=== PATIENT | male | born 1960 | race Caucasian/White ===

== ENCOUNTER 2019-01-10 20:38 | Inpatient (IN) | payer OTHER ==
[~2019-01-10] VITALS: Ht 188 cm; Wt 117.9 kg
[2019-01-10 20:50] LABS: URINE BILIRUBIN NEGATIVE (Negative); URINE BLOOD NEGATIVE (Negative); URINE CLARITY CLEAR; URINE COLOR YELLOW; URINE GLUCOSE-RANDOM* NEGATIVE (Negative); URINE KETONES NEGATIVE (Negative); URINE LEUKOCYTES-REFLEX NEGATIVE (Negative); URINE NITRITE-REFLEX NEGATIVE (Negative); URINE PROTEIN (DIPSTICK) NEGATIVE (Negative); URINE UROBILINOGEN 0.2 E.U./dl (0.2-1.0)
[2019-01-10 21:22] VITALS: BP 167/89
[2019-01-10 23:22] LABS: ABSOLUTE NEUTROPHILS 9.6 thou/uL (1.4-8.2); BASOPHILS 0.5 % (0.0-2.0); EOSINOPHILS 2.6 % (0.0-3.0); HEMATOCRIT 45.3 % (42.0-52.0); LYMPHOCYTES 8.3 % (24.0-44.0); MCH 31.5 pg (26.0-34.0); MCHC 35.3 g/dL (28.0-37.0); MCV 89.1 fL (80.0-100.0); MONOCYTES 8.7 % (1.0-8.0); PLATELET COUNT 192 thou/uL (150-400); POLYS 79.9 % (36.0-66.0); RBC 5.08 mil/uL (4.50-6.00); RDW 14.4 % (10.5-14.5)
[2019-01-10 23:32] LABS: CALCIUM 8.6 mg/dL (8.5-10.1); POTASSIUM 3.7 mmol/L (3.5-5.1)
[2019-01-10 23:38] LABS: ALBUMIN 3.5 g/dL (3.4-5.0); TOTAL BILIRUBIN 1.2 mg/dL (<0.1-1.0)
[2019-01-11 09:35] VITALS: BP 113/86
[2019-01-11 18:33] VITALS: BP 164/88
--- NOTE | 2019-01-11 18:35 | NUR ---
ARRIVES TO FLOOR VIA CART FROM SURGERY 58 YEAR OLD MALE FOLLOWING LAP CHOLEY-END TIME ANESTHESIA 1548. 2 IV SITES 1 LEFT HAND-1 IN RIGHT AC-LR 125CC/HR STARTED IN LEFT HAND SITE. AVE DRAIN PATENT DRAINING BRIGHT RED BLOOD 4 SMALL INCISIONS CLOSED WITH DERMABOND. VS STABLE UPON ARIVAL TO FLOOR-UP TO BR X2 AND GAIT IS STEADY REQUIRES SBA X 1-ATE 100 PERCENT OF SUPPER-NO NAUSEA NOTED OR REPORTED-DENIES PAIN/DISCOMFORT
[2019-01-11 19:06] VITALS: BP 142/80
--- NOTE | 2019-01-11 19:11 | NUR ---
BP RECHECKED VIA MANUAL CUFF AND IS 140/82 P-80.
[2019-01-11 20:35] VITALS: BP 151/73
[2019-01-12 00:13] VITALS: BP 143/57
[2019-01-12 03:35] VITALS: BP 140/80
--- NOTE | 2019-01-12 06:23 | NUR ---
ASSUMED CARE AT 1900, ASSESMENT COMPLETED. PT REPORTS MODERATE TENDERNESS TO RIGHT SIDE OF ABD; WAS RELIEVED BY OXY GIVEN DURING THE DAY; OVERNIGHT PT REPORTED HE WANTED TO MINIMIZE THE AMOUNT OF NARCOTICS; GAVE SCHEDULED TYLENOL ORDERED. DENIED NAUSEA OR SOB. 3x LAP SITES C/D/I WITH DERMABOND; MODERATE AMOUNT OF SANGINOUS DRAINAGE AROUND AVE DRAIN SITE, DID NOT LEAK OUTSIDE OF THE BANDAGE. ABOUT 60 ML TOTAL OUT OF THE AVE DRAIN OVERNIGHT. EDUCATED PT ABOUT PAIN CONTROL, STARTING A BOWEL REGIMEN IF TAKING NARCOTICS WELL INCREASING WATER INTAKE/WALKING MORE TO RESTART BOWEL, AND POST-OP EXPECTATIONS. PT UP THIS AM, WALKED MULTIPLE LAPS OF THE UNIT. NO OTHER CONCERNS, WILL CONTINUE TO MONITOR.
[2019-01-12 07:23] VITALS: BP 143/95
--- NOTE | 2019-01-12 11:12 | NUR ---
Assumed care of pt at 0700. Pt alert and oriented x4. Pain controlled. Denies pain meds. Up ad shon. AVE drain in place. Serosanguineous drainage. Lap sites clean, intact, and well-approximated. Awaiting on discharge orders.
[2019-01-12] MEDS ORDERED: ACETAMINOPHEN325 M1 PO (11:44)
[2019-01-12] MEDS ORDERED: OXYCODONE HCL 55 MG PO (11:44)
[2019-01-12] MEDS ORDERED: COLACE100 MG PO (11:45)
[2019-01-12] MEDS ORDERED: MIRALAX17 GM PO (11:45)
[2019-01-12 11:57] VITALS: BP 143/95
--- NOTE | 2019-01-12 12:02 | NUR ---
FAXED FACE SHEET TO [employer] FOR HELP WITH MEDICAID APPLICATION. DCP TO FOLLOW.
--- NOTE | 2019-01-12 12:26 | NUR ---
ASSESSMENT-PT LIVES AT HOME WITH HIS SO. PT IS INDEPENDENT OF ADLS AND AMBULATION. 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 PT HAS NO PCP. PT GIVEN A PRESCRIPTION DRUG DISCOUNT CARD AND A SAFETY NET PACKET. NO OTHER DC NEEDS IDENTIFIED. 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
--- NOTE | 2019-01-15 14:04 | O ---
[facility] [place] [address] OPERATIVE REPORT Name: DEJA HU Janak Room #: 421-P [facility] IN M.R.#: [id number] Admission: 01/11/19 ������������������ Attend Phys: Nacho Pastor, Discharge: 01/12/19 ������������������ Date of : 56 Report #: [id number] THIS REPORT FOR: //name// CC: ROXANN physician/PCP Nacho Pastor DATE OF SERVICE: 01/11/2019 PREPROCEDURE DIAGNOSIS: Cholecystitis. POSTPROCEDURE DIAGNOSIS: Severe necrotic gangrenous cholecystitis. PROCEDURE PERFORMED: Laparoscopic cholecystectomy with attempted intraoperative cholangiogram. SURGEON: Abhilash Crouch M.D. ANESTHETIC: General. ASSISTANTS: None. ESTIMATED BLOOD LOSS: 100 mL. URINE OUTPUT: Not measured. COMPLICATIONS: None. FINDINGS: 1. The patient had severe gangrenous necrotic cholecystitis. 2. The patient otherwise had normal biliary anatomy. 3. No cholangiogram was completed. SPECIMENS: Gallbladder and contents. INDICATIONS FOR PROCEDURE: The patient is a very pleasant 58-year-old gentleman with a longstanding history of right upper quadrant abdominal pain that has worsened recently. He has also developed nausea and vomiting, presented to the ER where a CT scan and ultrasound demonstrated cholecystitis. General Surgery was asked to evaluate the patient. The risks, benefits and alternatives of the procedure were discussed with the patient. The risks discussed included, but were not limited to the risk of bleeding, infection, damage to any intra-abdominal organs (hollow viscus organs, solid organs, blood vessels, nerves), damage to the common bile duct necessitating further surgery, further hospitalization, could be a life altering event, conversion to open, need for prolonged hospitalization, postoperative [facility] [address] [place] [address] OPERATIVE REPORT Name: DEJA HU Room #: 421-P [facility] IN ..#: [id number] Admission: 01/11/19 ������������������ Attend Phys: Nacho Pastor, Discharge: 01/12/19 ������������������ Date of : 56 Report #: [id number] abscess, postoperative ileus, other postoperative complications, anesthesia (including cardiac, pulmonary, neurologic type complications) and . The patient had the opportunity to ask questions. All questions were answered to the best of my ability. At the end of the discussion, he and his acquaintance did wish to proceed with surgery. DESCRIPTION OF PROCEDURE: After informed consent was obtained, as above, the patient was taken to the operating room and placed in supine position. General anesthesia was induced. Preprocedure antibiotics were administered. His anterior abdomen was prepped and draped in the usual sterile fashion. A timeout was performed. After all were in agreement. A 5-mm incision was made in the supraumbilical region. Veress needle was inserted. The pneumoperitoneum was created. 5-mm port was passed. The laparoscope was then inserted. Abdomen was inspected. Findings as above. The patient had severe cholecystitis; however, there were no other gross abnormalities identified within the patient's abdomen. Next, the following ports were placed in standard fashion under direct visualization, 12-mm subxiphoid port and two 5 mm right upper quadrant ports. All ports were placed without any adverse events and after injection of local anesthetic. We began by draining the gallbladder using laparoscopic needle and suctioning the bile out the gallbladder. The dome of the gallbladder was then grasped and retracted towards the patient's right shoulder. Filmy adhesions and omentum that was stuck to the gallbladder were swept way down to the neck. There were strong adhesions to the neck of the gallbladder that were dissected away bluntly. Next, electrocautery was used to incise the region of the gallbladder overlying the node of Calot. This tissue was extremely thick and edematous and was very friable and not amenable to electrocautery. It basically tore with any manipulation and was hemorrhagic in nature. There was no large pulsatile bleeding. There is just friable tissue. Dissection continued trying to identify anatomy. We did use extreme caution using blunt dissection and using the suction device, we were able to identify the cystic duct. I gained circumferential control of the cystic duct. Cystic artery was then identified. The dissection then carried laterally and along the liver laterally to work on the cystic plate. I was able to gain a window behind the cystic artery between the gallbladder and cystic plate. There were then 2 and only 2 structures coming into and out of the gallbladder and there was also adequate cystic plate dissected free. At this point, I felt that I had my critical view. The cystic artery was clipped with 2 clips proximally and it was transected with electrocautery. Cystic duct was clipped with 2 clips distally. A ductotomy was performed. A cholangiogram catheter was attempted to be threaded; however, the cystic duct was extremely friable and it was non-amenable to cholangiogram; therefore, the cholangiogram was attempted once; however, this was unsuccessful, so was aborted. The cystic duct was clipped with 2 clips [facility] [address] [place] [address] OPERATIVE REPORT Name: DEJA HU Room #: 421-P [facility] IN M.R.#: [id number] Admission: 01/11/19 ������������������ Attend Phys: Nacho Pastor, Discharge: 01/12/19 ������������������ Date of : 56 Report #: [id number] proximally, was transected with scissors. The gallbladder was then dissected away from the hepatic plate using extreme caution. Once freed, it was placed into a laparoscopic retrieval bag and removed out the 12-mm port site under direct visualization. All free fluid in the right upper quadrant was suctioned out. Hemostasis was ensured along the liver bed. The clips were in place on the cystic duct and cystic artery. There was spillage of the gallbladder contents and the stones were carefully removed. The patient was hemostatic at this point. The 12-mm port site was removed. The fascia at this incision was closed using a laparoscopic fascial closure device. A 19-Cymro Noel drain was placed through the lateral right upper quadrant incision and placed carefully in the subhepatic space and secured into place using 2-0 nylon. The pneumoperitoneum was released. The trocars were removed. The skin incisions were closed using 4-0 Monocryl in subcuticular fashion. The patient tolerated the procedure well. There were no adverse events throughout the course of procedure. ��������������������������������������������� <ELECTRONICALLY SIGNED> ���������������������������������������� By: Abhilash Crouch MD ��������������������������������������������� 01/15/19 1404 2147 2212 Abhilash Crouch MD /marilynn
--- NOTE | 2019-01-15 14:04 | D ---
[facility] [place] [address] DISCHARGE SUMMARY Name: DEJA HU Room #: 421-P [facility] IN M.R.#: [id number] Admission: 01/11/19 ������������������ Attend Phys: Nacho Pastor, Discharge: 01/12/19 ������������������ Date of : 56 Report #: [id number] THIS REPORT FOR: //name// CC: ROXANN physician/PCP Nacho Pastor DATE OF SERVICE: 01/12/2019 ATTENDING PHYSICIAN: Abhilash Crouch MD CONSULTING PHYSICIANS: None. DISCHARGE DIAGNOSIS: Severe gangrenous necrotic cholecystitis. PROCEDURES PERFORMED: Laparoscopic cholecystectomy with attempted intraoperative cholangiogram. HOSPITAL COURSE: The patient was admitted and taken to the operating room for the above-stated procedure. The patient tolerated the procedure well. It was a very severe gangrenous gallbladder. Therefore, a drain was left. Postop day #1, the patient did great. He was eating. He was ambulating. His pain was controlled. He is afebrile. His vitals are stable. He is urinating. He is doing well and actually very anxious to get out of the hospital. DISCHARGE DISPOSITION: Home. CONDITION: Stable. MEDICATIONS: Please see discharge med rec. DIET: Regular. ACTIVITIES: Do not lift, twist, push or pull greater than 15 pounds x 4 weeks. Okay to shower, no soaking ____ water for [address] work while taking narcotics as these can make you drowsy. Measure and record drain output daily and bring recording to clinic. Followup Dr. Abhilash Crouch on Tuesday. ��������������������������������������������� <ELECTRONICALLY SIGNED> ���������������������������������������� By: Abhilash Crouch MD ��������������������������������������������� 01/15/19 1404 1158 1230 Abhilash Crouch MD /nt
--- NOTE | 2019-01-15 16:06 | PATH ---
[facility] [address] [place] [address] PATHOLOGY RPT PROCEDURE Name: AMADOU CAAL Room #: 421-P [facility] IN ..#: [id number] ������������������ Admission: 01/11/19 ������������������ Date of : 56 Discharge: 01/12/19 Report #: [id number] Path Case #: [id number] [facility] Accession Number: [id number] . 01 Material submitted: . gallbladder - GALLBLADDER . 01 Clinical history: . Cholecystitis . 02 Diagnosis: Gallbladder, cholecystectomy: - Gangrenous and hemorrhagic acute cholecystitis associated with extensive ulceration. - Negative for malignancy. - Cholelithiasis. (IUV/db; 01/15/2019) LBQ/01/15/2019 . 02 Electronically signed: . Vida Smith MD, Pathologist NPI- [id number] . 01 Gross description: . Received in formalin labeled "Caal, Amadou, gallbladder," is a ragged, disrupted gallbladder measuring 7.6 x 2.6 x 2.6 cm in greatest dimensions. The serosal surface is smooth to shaggy, extensively disrupted and pale hernandez to dusky pro-hernandez and hemorrhagic in appearance. A hernandez possible lymph node is noted near the infundibulum, measuring 0.8 x 0.7 x 0.3 cm. A ragged hole is present near the infundibulum, measuring 3.5 x 1.5 cm and extending to within 0.6 cm of the infundibulum. Two additional ragged holes are present at the fundus, measuring 1.4 x 0.3 cm and 2.1 x 0.2 cm. The mucosal surface is partially roughened and hernandez-brown to slightly hemorrhagic in appearance, displaying focal dark green patches toward the fundal aspect. The mucosa measures 0.1 cm in thickness, and the gallbladder wall measures up to 1.2 cm in thickness with extensively fatty cut surfaces. No distinct polyps or nodules are noted grossly. A single calculus is present within the specimen container that is black and granular in appearance, measuring 1.2 cm in maximum dimension. Hyperbaric Technologist sections of the infundibulum, body and fundus are submitted in cassettes A1 and A2, to include the aforementioned defects. The possible lymph node is trisected and submitted entirely in cassette A2. ([facility]; 01/12/2019) XDC/XDC . 02 Pathologist provided ICD-10: K80.[address] [address] PATHOLOGY RPT PROCEDURE Name: AMADOU CAAL Janak Room #: 421-P [facility] IN M.R.#: [id number] ������������������ Admission: 01/11/19 ������������������ Date of : 56 Discharge: 01/12/19 Report #: [id number] Path Case #: [id number] . 02 CPT . [id number] Specimen Comment: A courtesy copy of this report has been sent to Specimen Comment: [phone]. Specimen Comment: Report sent to and Performed at: [address], [place] [id number] MD Pawan Macias MD Phone: [phone] Performed at: [address] [id number] MD Vida Smith MD Phone: [phone]
== END 2019-01-12 12:28 | disposition home or self-care (01) | DRG 419 ==
LOC: ER 20:38 → 4E 01-11 01:15 → EROBS 01-11 01:15 → 4E 01-11 16:59
PROVIDERS: Physician Assistant; ADMIT Surgery
PROC: 0FT44ZZ Resection of Gallbladder, Percutaneous Endoscopic Approach (ICD-10-PCS; principal; 2019-01-11)
DX: K80.00 Calculus of gallbladder with acute cholecystitis without obstruction (principal); K82.A1 Gangrene of gallbladder in cholecystitis; I10 Essential (primary) hypertension; K21.9 Gastro-esophageal reflux disease without esophagitis; Z79.899 Other long term (current) drug therapy; Z80.1 Family history of malignant neoplasm of trachea, bronchus and lung
CPT/HCPCS: 10783; 50010; 50101; 50249; 50331; 50411; 50555; 50558; 51489; 51687; 51975; 52265; 52266; 53307; 53310; 54022; 54118; 55245; 55317; 56462; 56525; 56526; 62110; 62900; 70005